=== PATIENT | female | born 1975 | race Caucasian/White ===

== ENCOUNTER 2017-03-10 18:32 | Emergency (ER) | payer SELFPAY ==
[~2017-03-10] VITALS: Ht 162.6 cm; Wt 59.0 kg
[2017-03-10 18:59] VITALS: BP 134/89
[2017-03-10] MEDS ORDERED: HYDROcodone-ACET 10/325MG TAB PO ONE ×2 (20:45)
[2017-03-10] MEDS ORDERED: LIDOCAINE 2% JELLY 11ml (GLYDO) ONE (20:51)
[2017-03-10] MEDS ORDERED: LIDOCAINE VISCOUS 2% 15ML UD MT ONE (21:00)
[2017-03-10] MEDS ORDERED: KETOROLAC TROMETH 60MG/2ML VIAL IM ONE (21:15)
== END 2017-03-10 21:40 | disposition home or self-care (01) ==
LOC: ER 18:38
DX: S80.01XA Contusion of right knee, initial encounter (principal); S80.02XA Contusion of left knee, initial encounter; Z88.1 Allergy status to other antibiotic agents; V49.49XA Driver injured in collision with other motor vehicles in traffic accident, initial encounter; Y93.89 Activity, other specified; Y99.8 Other external cause status; Y92.410 Unspecified street and highway as the place of occurrence of the external cause
CPT/HCPCS: 73590; 96372; 99284; J1885